=== PATIENT | male | born 1965 | race Caucasian/White ===

== ENCOUNTER 2021-12-07 04:21 | Outpatient (CLI) | payer MEDICAID, SELFPAY ==
[2021-12-07 08:28] LABS: Calculated LDL 122 mg/dL (<100); Cholesterol 183 mg/dL (<200); HDL Cholesterol 50 mg/dL (40-60); Triglyceride 59 mg/dL (<150)
== END 2021-12-07 04:22 | disposition home or self-care (01) ==
LOC: LBO 04:22
PROVIDERS: PCP Family Medicine
DX: E78.5 Hyperlipidemia, unspecified (principal)
CPT/HCPCS: 36415; 80061

== ENCOUNTER 2021-12-11 12:41 | Outpatient (REF) | payer MEDICAID, SELFPAY ==
[2021-12-15 07:21] LABS: Chlamydia Result Negative (Negative); GC Result Negative (Negative)
== END 2021-12-11 12:42 | disposition home or self-care (01) ==
LOC: LBN 12:41
PROVIDERS: PCP Family Medicine; Visit Provider Family Medicine
DX: Z11.3 Encounter for screening for infections with a predominantly sexual mode of transmission (principal)
CPT/HCPCS: 87491; 87591

== ENCOUNTER 2021-12-15 01:33 | Outpatient (CLI) | payer MEDICAID, SELFPAY ==
[2021-12-16 11:10] LABS: HIV-1/2 Ag & Ab Screen Negative (Negative)
[2021-12-16 11:32] LABS: Syphilis Serology (RPR) Negative (Negative)
== END 2021-12-15 01:34 | disposition home or self-care (01) ==
LOC: LBO 01:33
PROVIDERS: PCP Family Medicine; Visit Provider Family Medicine
DX: Z11.3 Encounter for screening for infections with a predominantly sexual mode of transmission (principal); Z11.4 Encounter for screening for human immunodeficiency virus [HIV]
CPT/HCPCS: 36415; 87389; 86592

== ENCOUNTER → 2022-05-18 01:08 | Outpatient (CLI) | payer MEDICAID, SELFPAY ==
--- NOTE | 2022-05-18 07:15 | DI.RAD_ITS ---
Exam(s) XR KNEE RT 4V AP,LAT,SAMANTA,PAT EXAM: XR KNEE RT 4V AP,LAT,SAMANTA,PAT CLINICAL HISTORY: Patella catching after injury,M22.8X9. TECHNIQUE: 2D digital imaging was performed. COMPARISON: No exams were available for comparison FINDINGS: Four views No evidence fracture. However, there is a joint effusion noted in the bursa as seen on the lateral v iew. No joint space narrowing. All 3 compartments exhibit normal height. No osteochondral defects. Bone density normal. No osseous lesions. IMPRESSION: No significant osseous findings but there is a joint effusion noted. This may signify an internal de rangement DATA REPOSITORY: RADIATION DOSE DELIVERED:
== END ==
PROVIDERS: PCP Family Medicine; Visit Provider Family Medicine
DX: M22.8X1 Other disorders of patella, right knee (principal)
CPT/HCPCS: 73564

== ENCOUNTER 2022-06-15 09:50 | Outpatient (CLI) | payer MEDICAID, SELFPAY ==
--- NOTE | 2022-06-15 11:30 | DI.RAD_ITS ---
Exam(s) XR ELBOW RT COMPLETE EXAM: XR ELBOW RT COMPLETE CLINICAL HISTORY: rupture of distal biceps tendon. TECHNIQUE: 2D digital imaging was performed. Three views. COMPARISON: No exams were available for comparison FINDINGS: BONES: No acute fracture is present. No bony destructive lesion is seen. Minimal spurring at the lat eral epicondyle. JOINTS: The elbow is normally aligned. No joint effusion is seen. SOFT TISSUE: Normal. IMPRESSION: Unremarkable radiographs of the right elbow. DATA REPOSITORY: RADIATION DOSE DELIVERED:
== END 2022-06-15 09:51 | disposition home or self-care (01) ==
LOC: DIORS 09:51
PROVIDERS: PCP Family Medicine; Referring Provider Family Medicine; Visit Provider Student in an Organized Health Care Education/Training Program
DX: M66.88 Spontaneous rupture of other tendons, other sites (principal)
CPT/HCPCS: 73080

== ENCOUNTER → 2022-06-15 15:20 | Outpatient (CLI) | payer MEDICAID, SELFPAY ==
--- NOTE | 2022-06-15 10:30 | DI.MRI_ITS ---
Exam(s) MR UPPER JOINT RT WO EXAM: MR UPPER JOINT RT WO CLINICAL HISTORY: ruptured Distal biceps tendon S46.219A. TECHNIQUE: Multiplanar multisequence MRI was performed. COMPARISON: None. FINDINGS: Bones: There is no fracture or contusion pattern. Biceps tendon: Full-thickness tear with retraction 2-3 cm. Severe surrounding edema distally. Brachialis tendon: Intact Common flexor tendons: Intact. Common extensor tendons: Edema adjacent to lateral epicondyle origin common extensor tendon. Soft tissues: No hematoma or muscle atrophy. Small joint effusion. IMPRESSION: Full-thickness tear with retraction of the biceps tendon. Lateral epicondylitis. DATA REPOSITORY:
== END ==
PROVIDERS: PCP Family Medicine; Visit Provider Student in an Organized Health Care Education/Training Program
DX: S46.211A Strain of muscle, fascia and tendon of other parts of biceps, right arm, initial encounter (principal); M77.11 Lateral epicondylitis, right elbow; X58.XXXA Exposure to other specified factors, initial encounter
CPT/HCPCS: 73221

== ENCOUNTER 2022-06-24 08:52 | Day surgery (SDC) | payer MEDICAID, SELFPAY ==
[2022-06-24] VITALS (10 sets, daily range): BP systolic 125–202; BP diastolic 65–107; PULSE 55–78; RESP 16–21; TEMP 36.2–36.6; O2SAT 96–98; BMI 27.4
[2022-06-24] MEDS: Lactated Ringers 1,000 ML 30 ML IV ×2 (11:03→14:08)
--- NOTE | 2022-06-24 11:12 | W.ANESPRE ---
General Info Date of Service Date Performed: 06/24/22 Height: 5 ft 9 in Weight: 84.4 kg Body Mass Index (BMI): 27.4 Surgical Procedure: Operation Date: 06/24/22 10:25 Proposed Procedure Side Surgeon p Distal Biceps Tendon Repair Right Drake Ozuna MD Meds Allergies and Home Medications Allergies Allergy/AdvReac Type Severity Reaction Status Date / Time bee pollen Allergy Severe anaphylaxis Verified 06/24/22 09:05 capsaicin Allergy Severe anaphylaxis Verified 06/24/22 09:05 Home Medication Medication Instructions Recorded cetirizine 10 mg tablet (Zyrtec) 10 mg PO DAILY 02/05/21 famotidine 40 mg tablet 40 mg PO DAILY 02/05/21 omeprazole 20 mg tablet,delayed 20 mg PO DAILY 02/12/21 release tadalafil 20 mg tablet 20 mg PO DAILY PRN sexual activity 07/14/21 #60 tabs epinephrine 0.3 mg/0.3 mL 0.3 mg (0.3 mL) IM ONCE #4 ea 02/05/22 injection, auto-injector montelukast 10 mg tablet 10 mg PO DAILY #90 tabs 04/15/22 bupropion HCl 150 mg tablet,12 hr 150 mg PO DAILY #90 tabs 05/13/22 sustained-release aspirin 81 mg tablet,delayed 81 mg PO DAILY Prevent blood clot 06/24/22 release 14 days #14 tabs dexamethasone 4 mg tablet See Rx Instructions PO DAILY PRN 06/24/22 naproxen 250 mg tablet 250 - 500 mg PO BID PRN #40 tabs 06/24/22 oxycodone 5 mg tablet 5 - 10 mg PO Q4H PRN moderate to 06/24/22 severe pain #18 tabs Current Visit Medications: Current Medications Generic Name Dose Route Start Last Admin Trade Name Freq PRN Reason Stop Dose Admin Ringer's Solution 1,000 mls @ 30 mls/hr 06/24/22 06:00 06/24/22 11:03 IV 07/23/22 23:59 30 mls/hr INFUSION GAURAV Administration Cefazolin Sodium/Dextrose 2 gm in 50 mls @ 100 mls/hr 06/24/22 06:00 Ancef Duplex IVPB 06/24/22 16:00 PREOP GAURAV IV Miscellaneous Supplies 1 each 06/24/22 06:00 Iv Access IV 07/23/22 23:59 DIRECTED GAURAV Oxycodone HCl 0 mg 06/24/22 07:16 Oxycodone 5 Mg Tab PO Q3H PRN PRN Pain Sodium Chloride 0 ml 06/24/22 06:00 Normal Saline Flush 10 Ml Syr IV 07/23/22 23:59 PRN PRN Sodium Chloride 0 ml 06/24/22 06:00 Normal Saline 10 Ml Vial IJ 07/23/22 23:59 DIRECTED PRN Sterile Water 0 ml 06/24/22 06:00 Water,Injection,Sterile 10 Ml Vial IJ 07/23/22 23:59 DIRECTED PRN PFSH Active Problems Active Problems: Problem Status Onset Code Traumatic rupture of right distal biceps tendon S46.211A SARS-CoV-2 positive 05/25/22 U07.1 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 Bee sting allergy Z91.030 Hypertension I10 Plantar fasciitis of left foot M72.2 Systemic mastocytosis D47.02 Barrett angioma D18.01 Keratosis L57.0 Hyperlipidemia E78.5 History of melanoma Z85.820 Depression F32.9 Mastocytosis D47.09 Acid reflux K21.9 Medical History Medical History Melanoma in situ left abdomen Tobacco Smoking/Tobacco Use Status: Never Alcohol Alcohol Intake: current Alcohol intake frequency: 0-2 drinks per day Alcohol type: beer and wine Substance Use Substance use: Never Substance use type: does not use Details: no IV drug use Vital Signs and Lab Results Vital Signs Most Recent Vital Signs in EMR: Most Recent Vital Signs Temp Pulse Resp BP Pulse Ox 36.6 C 78 16 170/107 H 98 06/24/22 09:10 06/24/22 09:10 06/24/22 09:10 06/24/22 09:42 06/24/22 09:10 Lab Results Blood Type / Crossmatch: No Data to Display Complete Blood Count: No Data to Display Complete Metabolic Panel: No Data to Display Liver Function Panel: No Data to Display Coagulation Panel: No Data to Display Cardiac Panel: No Data to Display Arterial Blood Gas: No Data to Display Venous Blood Gas: No Data to Display Pancreas Panel: No Data to Display Thyroid Panel: No Data to Display Infectious Disease: No Data to Display Blood Cultures: No Data to Display Toxicology Panel: No Data to Display Anesthesia Assessment and Plan Anesthesia History Personal History: No History of Anesthesia Complications and No History of General Anesthesia Family History: No Family History of Anesthesia Complications Exercise Tolerance Exercise Tolerance: Metabolic Equivalents>4 Pertinent Negatives Pertinent Negatives: No Symptoms of GERD Cardiac & Pulmonary Exam Cardiac Exam: Normal S1/S2 Heart Sounds Pulmonary Exam: Clear Bilateral Breath Sounds Implantable Cardiac Device Does patient have a Pacemaker or an ICD?: No Airway Exam Known Difficult Airway: No Mallampati Class: 2 Mouth Opening: Normal (> 3cm) Thyromental Distance: Greater than 3 cm Neck Range of Motion: Full ROM Neck Circumference: Normal Teeth Condition: Normal Dentition and Generalized Poor Dentition ASA Classification ASA Score: ASA 2 Emergency Case?: No NPO Status NPO Status: NPO Clears >2 hours, Solids >8 hours Anesthesia Plan Resuscitation Status: Full Code Anesthesia Technique: General Anesthesia Airway Planned: Endotracheal Tube Pain Management: Surgeon and patient request nerve block Monitors Used: Standard Monitors
[2022-06-24] MEDS: ceFAZolin 2 GM/50 ML BAG IVPB (12:02)
--- NOTE | 2022-06-24 12:42 | W.ANESNERVE ---
Nerve Block Single Injection Procedure Date and Time Date Performed: 06/24/22 Procedure Start: 12:43 Location Where Procedure Performed Procedure Location: Day Surgery Unit Reason Performed: Postoperative Analgesia Requesting Provider: Drake Ozuna Timeout Performed Timeout Performed: Yes Monitoring Used ECG, Blood Pressure and SpO2 Sterility Sterility: Hand Hygiene, Surgical Cap, Surgical Mask, Sterile Gloves and Chlorhexidine Sedation Given During Procedure Sedation Given (Indicate Dose Given): Versed IV Dose:: 2 mg Patient Mental Status Patient Mental Status: Sedate with meaningful communication Nerve Block 1st Nerve Block: Laterality: Right Block Type: Interscalene Needle / Catheter Used: 100mm SonoPlex II Local Anesthetic Bolus (Indicate Dose Given): Lidocaine used for local infiltration of skin, Injected in 3-5ml increments after negative blood aspiration and Bupivacaine 0.5% Dose:: 20 ml Additives (Indicate Dose Given): None and Precedex Dose:: 85 mcg Ultrasound: Sterile probe cover and gel used Ultrasound Image Saved?: Yes Nerve Stimulator: Not Used Paresthesia: Right Paresthesia Duration: Transient Procedure Tolerated: No Complications and Patient tolerated well Procedure Outcome: Successful Performed By: Lobo Matthew
[2022-06-24] MEDS: Bupivacaine 0.5% Pres-Free W/EPI 30 ML VIAL (13:00)
--- NOTE | 2022-06-24 14:03 | DI.RAD_ITS ---
Exam(s) XR ELBOW RT LIMITED EXAM: XR ELBOW RT LIMITED CLINICAL HISTORY: distal biceps rupture. TECHNIQUE: 2D and realtime digital imaging was performed. COMPARISON: CR XR ELBOW RT COMPLETE from 06/15/2022 FINDINGS: Fluoroscopy was provided for Dr. Ozuna during biceps tendon repair procedure. Please see procedure note for details. Fluoro time: 8.7seconds RADIATION DOSE DELIVERED: Ka,r=0.26 mGy
--- NOTE | 2022-06-24 14:10 | W.PM.DSUDISC ---
Discharge Plan Disposition Patient Disposition: HOME Condition: Stable Discharge Details Reason For Visit: Right elbow surgery Attending Provider: Drake Ozuna Primary Care Provider: Miles Cannon Home Meds and New Rx's Prescriptions: New naproxen 250 mg tablet 250 - 500 mg PO BID PRNQty: 40 0RF Rx Instructions: take with a meal aspirin 81 mg tablet,delayed release (DR/EC) 81 mg PO DAILY 14 Days Qty: 14 0RF oxycodone 5 mg tablet 5 - 10 mg PO Q4H MDD 30 mg PRN (Reason: moderate to severe pain) Qty: 18 0RF Continued tadalafil 20 mg tablet 20 mg PO DAILY PRN (Reason: sexual activity) Qty: 60 0RF Rx Instructions: administer approximately 30min before sexual activity; do not use more than 1 dose per 24hrs epinephrine 0.3 mg/0.3 mL auto-injector 0.3 mg IM ONCE Qty: 4 3RF Rx Instructions: as a single dose omeprazole 20 mg tablet,delayed release (DR/EC) 20 mg PO DAILY cetirizine [Zyrtec] 10 mg tablet 10 mg PO DAILY famotidine 40 mg tablet 40 mg PO DAILY montelukast 10 mg tablet 10 mg PO DAILY Qty: 90 3RF bupropion HCl 150 mg tablet sustained-release 12 hr 150 mg PO DAILY Qty: 90 3RF dexamethasone 4 mg tablet See Rx Instructions PO DAILY PRN Rx Instructions: take 3 tabs (12 mg) onset of mastocytosis and then 1 tab bid for 3 days. Given enough for 3 outbreaks. PO daily; Discharge Instructions Additional Instructions: Surgery: Right distal biceps tendon repair Activity: Non-weightbearing right upper extremity. Gently increase elbow range of motion. Avoid any weighted elbow flexion or resisted supination for 6 weeks. You may use a sling for comfort to support the elbow and keep it bent for the first few weeks. A physical therapy prescription will be provided separately in the office at follow-up. Concentric strengthening at 2 months. Eccentric at 3 months. Prescriptions: Aspirin 81 mg take 1 daily to prevent a blood clot for 2 weeks Naproxen 250 mg take 1-2 every 12 hours with a meal as needed for moderate pain Oxycodone 5 mg take 1-2 every 4-6 hours as needed for severe pain You may use [id number] Tylenol (acetaminophen) as needed for mild pain. These pain medications may be taken all at once or in different combinations as needed. Also, recommend Colace (docusate) as a stool softener as surgery and pain medicine cause constipation. You may try [id number] diphenhydramine (Benadryl) 25-50 mg nightly as a sleep aid Dressings: Leave dressing in place until follow-up. Keep clean and dry at all times. Follow-up: 10-[address] Ozuna Let us know right away if you develop any redness, drainage, fevers, chest pain, or trouble breathing. Do not drink alcohol or drive for at least 24 hours after anesthesia. Please call the office during business hours with any questions or concerns. Discharge Orders Discharge Orders: Discharge Order (Routine); Ordered 06/24/22 Ordered By: Drake Ozuna DS: Diagnosis Discharge Diagnosis (1) Traumatic rupture of right distal biceps tendon: Status: Acute
--- NOTE | 2022-06-24 14:20 | W.PM.OP ---
Operative Note Operative Note DATE OF PROCEDURE: 06/24/22 PRE-OP DIAGNOSIS: Right distal biceps tendon rupture POST-OP DIAGNOSIS: same PROCEDURE: Right distal biceps tendon repair, CPT #08772 SURGEON: Drake Ozuna TRIMMING OPERATOR: Eben Us ANESTHESIA TYPE: Local By Surgeon, General LMA/ETT and Primary Nerve Block Refer to Anesthesia Record ESTIMATED BLOOD LOSS: 10 TOURNIQUET TIME: 0 COMPLICATIONS: None Patient was transported to: PACU Patient's condition: stable Implants: Arthrex distal biceps tendon button Indications: Please see complete medical record for details. Findings: Chronic completely torn, about 3 cm retracted, and extensively scarred distal biceps tendon Procedure Description: In the operating room, general anesthesia was induced. The patient was positioned supine on the operating room table. All bony prominences were well-padded. Preoperative antibiotics were administered. The right elbow was prepped and draped in the usual sterile fashion. The correct patient, procedure, and side of the procedure were all verified prior to incision. C arm fluoroscopy was used to localize the radial tuberosity. Bupivacaine containing epinephrine was infiltrated about the planned transverse incision overlying this site on the volar proximal forearm. Incision was carried through the skin and subcutaneous tissue was bluntly spread followed by popping through and spreading deeper tissue targeting the radial tuberosity bluntly. The radial tuberosity was essentially bald with minimal remnant tendon. The chronically ruptured biceps tendon could be palpated at about the antecubital fossa scar to subcutaneous tissue, skin, and spreading out deeply and adhering to vessels and surrounding muscles in its attempt to reach its distal insertion. Carefully and meticulously starting superficially and working proximally distally and then deeply the biceps tendon was freed from surrounding tissue. The tendon was whipstitched with #2 fiber loop and tubularized before being passed through an 8 mm graft tube. The tendon was then placed back into the wound and retracted out of the way. The radial tuberosity was exposed maintaining the forearm in full supination. C arm fluoroscopy was used to confirm placement of the bicortical drill, which was overreamed unit cortically with the 8 mm low-profile reamer to create the socket for repair. The wound and socket was copiously irrigated to remove all bone debris. The repair suture free ends were passed [id number] through the button and then passed back through the ruptured tendon stump using a tapered free needle. The button was successfully deployed into the socket and just past the far cortex. It was released and flipped with traction confirming appropriate cortical fixation. Using the modified tension slide technique the free suture ends were sequentially pulled delivering the tendon with the help of a Hermann into the socket. The elbow was flexed moderately and final tension applied through the free suture ends before a secured knot was tied over the tendon repair. The repair tendon demonstrated excellent anatomy and fixation in flexion extension and supination pronation. The tendon and musculocutaneous junction were appropriately mobile from surrounding skin and soft tissue. Deep and superficial wound was copiously irrigated with normal saline. Hemostasis was appropriate. Subcutaneous tissue was closed with 2-0 Monocryl buried operative fashion. Skin was closed using 3-0 Monocryl buried running. Skin glue applied over the incision followed by Mepilex bandage. The patient awoke from anesthesia without complication and was transferred to the recovery room in a stable condition.
--- NOTE | 2022-06-24 15:41 | W.ANESPOSTOP ---
Postoperative Evaluation Date, Time and Location Date Performed: 06/24/22 Time Performed: 15:41 Patient Location: Day Surgery Unit Vital Signs Most Recent Imported Vital Signs: Most Recent Vital Signs Temp Pulse Resp BP Pulse Ox 36.5 C 55 L 20 145/90 H 96 06/24/22 15:00 06/24/22 15:00 06/24/22 15:00 06/24/22 15:00 06/24/22 15:00 Pain Score Most Recent Pain Score: Most Recent Pain Score Pain Level 0 06/24/22 15:00 Assessment Mental Status: Awake (Alert & Oriented to Patient Baseline) Airway and Respiratory Function: Patent airway with normal (patient baseline) respiratory exam Cardiovascular Function: Hemodynamically Stable Hydration Status: Adequately Hydrated Nausea & Vomiting: No Nausea or Vomiting Pain: Pain is tolerable per patient (Reports some discomfort (soreness) but overall fine) Peripheral Nerve Block: Regional nerve block not resolved at time of post operative discharge Postoperative Comments:: Slight trauma to lower right tongue base on OPA placement at end of case. Talked to patient in [facility], denies discomfort no bleeding. Patient allowed to ask questions, denies any. Patient cleared for discharfe.
== END 2022-06-24 16:00 | disposition home or self-care (01) ==
PROVIDERS: PCP Family Medicine; Visit Provider Student in an Organized Health Care Education/Training Program
PROC: (CPT 24341; principal; 2022-06-24 10:15)
DX: S46.211A Strain of muscle, fascia and tendon of other parts of biceps, right arm, initial encounter (principal); X50.0XXA Overexertion from strenuous movement or load, initial encounter; E78.5 Hyperlipidemia, unspecified; I10 Essential (primary) hypertension
CPT/HCPCS: 24342; 76000; 76942; 73070; J0690; J1100; J2250; J2704

== ENCOUNTER 2024-11-06 01:16 | Outpatient (CLI) | payer MEDICAID, SELFPAY ==
[2024-11-06 16:52] LABS: ALT 35 U/L (16-63); AST 17 U/L (15-37); Albumin 4.5 g/dL (3.4-5.0); Alkaline Phosphatase 77 U/L (46-116); Anion Gap 8.3 mmol/L (3-11); BUN 17 mg/dL (7-18); Bilirubin, Total 0.98 mg/dL (0.2-1.0); CO2 29.7 mmol/L (21.0-32.0); CREATININE 1.1 mg/dL (0.70-1.30); Calcium 9.5 mg/dL (8.5-10.1); Chloride 102 mmol/L (98-107); Estimated GFR 76.37 (mL/min/1.73m2); Glucose 99 mg/dL (74-106); Potassium 4.1 mmol/L (3.5-5.1); Sodium 140 mmol/L (136-145); Total Protein 7.8 g/dL (6.4-8.2)
== END 2024-11-06 01:17 | disposition home or self-care (01) ==
LOC: LBO 01:17
PROVIDERS: PCP Family Medicine; Referring Provider Family Medicine; Visit Provider Family Medicine
DX: I10 Essential (primary) hypertension (principal); Z23 Encounter for immunization; Z91.030 Bee allergy status
CPT/HCPCS: 36415; 80053